=== PATIENT | female | born 1945 | race Caucasian/White ===

== ENCOUNTER 2019-08-17 13:25 | Outpatient (CLI) | payer MEDICARE ==
--- NOTE | 2019-08-27 13:43 | MMO ---
Bilateral MAMMO Bilat Screen [facility]. CLINICAL HISTORY: Patient is 73 years old and is seen for screening. The patient has the following family history of breast cancer: mother, at age 52, malignant (generic). The patient has no personal history of cancer. VIEWS: The views performed were: bilateral craniocaudal with tomosynthesis and bilateral mediolateral oblique with tomosynthesis. FILMS COMPARED: The present examination has been compared to prior imaging studies performed at This study has been interpreted with the assistance of computer-aided detection. MAMMOGRAM FINDINGS: The breasts are heterogeneously dense, which could obscure a lesion on mammography. There are no suspicious masses, suspicious calcifications, or new areas of architectural distortion. IMPRESSION: THERE IS NO MAMMOGRAPHIC EVIDENCE OF MALIGNANCY. A ROUTINE FOLLOW-UP MAMMOGRAM IN 1 YEAR IS RECOMMENDED. THE RESULTS OF THIS EXAM WERE SENT TO THE PATIENT. ACR BI-RADS Category 1 - Negative MAMMOGRAPHY NOTE: 1. A negative mammogram report should not delay a biopsy if a dominant of clinically suspicious mass is present. 2. Approximately 10% to 15% of breast cancers are not detected by mammography. 3. Adenosis and dense breasts may obscure an underlying neoplasm. Reported by: ORA ANN MD Electonically Signed: [id number]
== END 2019-08-17 13:26 | disposition home or self-care (01) ==
LOC: BICMAMMO 13:25
PROVIDERS: ATTEND Internal Medicine
DX: Z12.31 Encounter for screening mammogram for malignant neoplasm of breast (principal); Z80.3 Family history of malignant neoplasm of breast
CPT/HCPCS: 77063; 77067

== ENCOUNTER 2021-12-15 11:07 | Outpatient (CLI) | payer MEDICARE | END 2021-12-15 11:08 | disposition home or self-care (01) | LOC: BICMAMMO 11:07 | PROVIDERS: ATTEND Internal Medicine | DX: Z12.31 Encounter for screening mammogram for malignant neoplasm of breast (principal); Z80.3 Family history of malignant neoplasm of breast | CPT/HCPCS: 77063; 77067 ==

== ENCOUNTER 2023-04-01 11:58 | Outpatient (CLI) | payer MEDICARE | END 2023-04-01 11:59 | disposition home or self-care (01) | LOC: BICRAD 11:58 | PROVIDERS: ATTEND Internal Medicine | DX: R05.9 Cough, unspecified (principal) | CPT/HCPCS: 71046 ==

== ENCOUNTER 2023-11-29 10:26 | Outpatient (CLI) | payer MEDICARE | END 2023-11-29 10:27 | disposition home or self-care (01) | LOC: BICRAD 10:26 | PROVIDERS: ATTEND Internal Medicine | DX: R05.9 Cough, unspecified (principal) | CPT/HCPCS: 71046 ==

== ENCOUNTER 2023-12-30 11:29 | Outpatient (CLI) | payer MEDICARE | END 2023-12-30 11:30 | disposition home or self-care (01) | LOC: BICMAMMO 11:29 | PROVIDERS: ATTEND Internal Medicine | DX: Z12.31 Encounter for screening mammogram for malignant neoplasm of breast (principal); Z80.3 Family history of malignant neoplasm of breast | CPT/HCPCS: 77063; 77067 ==

== ENCOUNTER 2025-04-11 13:06 | Outpatient (CLI) | payer MEDICARE | END 2025-04-11 13:07 | disposition home or self-care (01) | LOC: BICMAMMO 13:06 | PROVIDERS: ATTEND Internal Medicine | DX: Z12.31 Encounter for screening mammogram for malignant neoplasm of breast (principal); M81.0 Age-related osteoporosis without current pathological fracture; M85.89 Other specified disorders of bone density and structure, multiple sites; Z80.3 Family history of malignant neoplasm of breast | CPT/HCPCS: 77063; 77067; 77080 ==

== ENCOUNTER 2025-06-12 15:01 | Observation (INO) | payer MEDICARE ==
[2025-06-12 16:00] LABS: #Basophils 0.07 10x3/uL (0.0-0.2); #Eosinophils 0.14 10x3/uL (0.0-0.7); #Monocytes 0.35 10x3/uL (0.11-0.59); #Neutrophils 3.15 10x3/uL (1.40-6.50); %Basophils 1.3 % (0.0-1.0); %Eosinophils 2.6 % (0.0-10.0); %Lymphocytes 29.7 % (21.0-51.0); %Monocytes 6.6 % (0.0-10.0); %Neutrophils 59.6 % (42.0-75.0); Hematocrit 37.1 % (36.0-47.0); Hemoglobin 12.2 g/dL (12.0-16.0); Mean Corpuscular Hemoglobin 28.4 pg (27.0-31.0); Mean Corpuscular Volume 86.3 fL (78.0-98.0); Platelet Count 298 10x3/uL (130-400); Red Blood Cell (RBC) Count 4.30 mill/uL (4.20-5.40); White Blood Cell (WBC) Count 5.29 10x3/uL (4.8-10.8)
[2025-06-12 16:15] LABS: ALT (SGPT) 18 U/L (Less than 34); AST (SGOT) 36 U/L (11-34); Albumin 4.4 g/dL (3.1-4.5); Alkaline Phosphatase 64 U/L (40-110); Anion Gap 13 mmol/L (10-20); BUN (Urea Nitrogen) 18 mg/dL (9.8-20.1); Bilirubin, Total 0.3 mg/dL (0.3-1.2); Calc. Creatinine Clearance 0 mL/min (70-130); Calcium 9.8 mg/dL (7.8-10.44); Carbon Dioxide 27 mmol/L (23-31); Chloride 100 mmol/L (98-107); Globulin 3.4 g/dL (2.4-3.5); Glucose 89 mg/dL (83-110); Potassium 4.2 mmol/L (3.5-5.1); Sodium 136 mmol/L (136-145)
[2025-06-12 16:16] LABS: INR-International Normal Ratio 1.0; Prothrombin Time 13.1 sec (12.0-14.7)
[2025-06-12 16:17] LABS: PTT 35.6 sec (22.9-36.1)
[2025-06-12] MEDS ORDERED: Aspirin Chewable 81 MG TAB ONE (17:05)
[2025-06-12] MEDS ORDERED: Proparacaine 0.5% Opth 15 ML BOT ONE (17:05)
[2025-06-12] MEDS ORDERED: Ondansetron PF 4 MG/2 ML Vial ONE (17:05)
[2025-06-12] MEDS ORDERED: Acetaminophen 325 MG TAB PO PRN (18:27)
[2025-06-12] MEDS ORDERED: Calcium Carbonate 500 MG ChewTAB PO PRN (18:27)
[2025-06-12] MEDS ORDERED: Guaifenesin DM 100-10/5 ML UDCUP PO PRN (18:27)
[2025-06-12] MEDS ORDERED: Ondansetron PF 4 MG/2 ML Vial IVP PRN (18:27)
[2025-06-12 21:19] VITALS: BMI 21.9
[2025-06-13 05:17] LABS: Cardiac Risk 4.3 (Less than 4.5); Cholesterol 240.0 mg/dl (< 200 Desired); HDL Cholesterol 56.0 mg/dL (>60 Neg Risk); LDL Cholesterol, Calculated 167.0 mg/dL; Triglycerides 84.0 mg/dL (Less than 150)
[2025-06-13] MEDS: Enoxaparin 40 MG (0.4 mL) SYRINGE SC SCH (10:10)
[2025-06-13] MEDS ORDERED: Magnesium Sulfate/D5W 1 GM/100 ML BAG IVPB SCH (10:30)
[2025-06-13] MEDS: Magnesium Sulfate/D5W 1 GM in Premix 1 BAG IVPB SCH (11:17)
[2025-06-13] MEDS: Ketorolac Tromethamine 30 MG (1 mL) VIAL IVP SCH (11:18)
[2025-06-13] MEDS ORDERED: Artificial Tear Ophth Sol 15 ML BOT EA EYE PRN (13:19)
[2025-06-13 15:44] VITALS: BP 101/54; TEMP 98.4
[2025-06-15] MEDS ORDERED: PNEUMOC 20-VAL CONJ-DIP CRM/PF 0.5 ML SYRINGE IM ONE (09:00)
[2025-06-15] MEDS ORDERED: FLU (Fluad Triv) 25-26 (65UP)PF 45 MCG/0.5 ML Syringe IM ONE (09:00)
== END 2025-06-13 17:00 | disposition home or self-care (01) ==
LOC: ERS 15:01 → ERHOLD 17:15 → OBS 20:20
PROVIDERS: ADMIT Internal Medicine; ATTEND Family Medicine
DX: I67.82 Cerebral ischemia (principal); R51.9 Headache, unspecified; R47.01 Aphasia; K21.9 Gastro-esophageal reflux disease without esophagitis; Z87.891 Personal history of nicotine dependence; Z79.899 Other long term (current) drug therapy
CPT/HCPCS: 70450; 70496; 70498; 70551; 71045; 80053; 80061; 82962; 84443; 84484; 85025; 85610; 85730; 86141; 93005; 94760; 96372; 96374; 96375 ×2; 99285; G0378 ×3; J1650; J1885; J2270; J2405; J3475; 36415; 36416